=== PATIENT | male | born 1990 | race Caucasian/White ===

== ENCOUNTER 2019-11-26 15:12 | Emergency (ER) | payer MEDICAID ==
[~2019-11-26] VITALS: Ht 167.6 cm; Wt 77.6 kg
[2019-11-26 15:15] VITALS: BP 134/54
[2019-11-26 15:56] LABS: MICROSCOPIC NOT IND
[2019-11-26 15:59] LABS: CULTURE INDICATED? NO
[2019-11-26] MEDS ORDERED: AZITHROMYCIN 500 MG TABLET PO ONE (16:00)
[2019-11-26] MEDS ORDERED: CEFTRIAXONE 250 MG IM ONE (16:00)
[2019-11-26] MEDS ORDERED: AZITHROMYCIN 500 MG TABLET ONE (16:07)
[2019-11-26] MEDS ORDERED: CEFTRIAXONE 250 MG ONE (16:08)
== END 2019-11-26 16:22 | disposition home or self-care (01) ==
LOC: ED 16:00
DX: N34.1 Nonspecific urethritis (principal)
CPT/HCPCS: 81003; 87491; 87591; 96372; 99283; J0696